=== PATIENT | female | born 1995 | race African-American/Black ===

== ENCOUNTER 2018-07-14 15:42 | Emergency (ER) | payer OTHER, MEDICAID, SELFPAY ==
[2018-07-14 15:44] VITALS: BP 139/101; PULSE 111; RESP 18; TEMP 37.1; O2SAT 98
[2018-07-14 17:18] LABS: RBC Urine 0-1/HPF (0-5/HPF); Squamous Epithelial Cell Urine 1-5 /HPF (0-5/HPF); WBC Urine 5-10/HPF (0-5/HPF)
[2018-07-14 17:19] LABS: Bacteria Urine Moderate (10-30); Culture Indicated Urine Specimen Cultured; Mucus Urine 1+ (Negative)
[2018-07-14 18:10] VITALS: BP 136/94; PULSE 88; RESP 17; O2SAT 100
--- NOTE | 2018-07-14 18:16 | ED_ITS ---
HPI - Abdominal Pain General Chief Complaint: Abdominal Pain Stated Complaint: lower right side abominal pain Time Seen by Provider: 07/14/18 18:02 Source: patient and family Mode of arrival: ambulatory Limitations: no limitations History of Present Illness HPI narrative: The patient is a 22-year-old female with right lower quadrant pain which started today. She says it hurts every time she moves. She thought initially she had have a bowel movement this morning however it is not going away. She has no fever nausea or vomiting. she thought maybe it was just a sore muscle however it also is not going away. No history of ovarian cysts. She denies any painful or frequent urination. 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 She has been eating and drinking normally. Pain has not migrated. MD complaint: abdominal pain Onset (ago): day(s) (1) Pain Consistency: constant Location: RLQ Severity: moderate Quality: sharp Radiation: none Migration to: no migration Relieving factors: nothing Exacerbating factors: nothing Related Data Home Medications Medication Instructions Recorded Confirmed ibuprofen [Motrin IB] 400 mg PO Q4-6H PRN 07/14/18 07/14/18 Previous Rx's Medication Instructions Recorded sulfamethoxazole-trimethoprim 20 ml PO BID 5 Days #200 ml 07/14/18 sulfamethoxazole-trimethoprim 1 tab PO BID 5 Days #10 tab 07/14/18 [Bactrim DS] Allergies Allergy/AdvReac Type Severity Reaction Status Date / Time amoxicillin AdvReac hives Verified 12/12/17 12:01 azithromycin [From Zithromax] AdvReac rash Verified 12/12/17 12:01 Pertussis Vaccines AdvReac swelling Verified 12/12/17 12:01 in her leg, uncontrollable screaming Review of Systems Review of Systems GENERAL: Denies chills, fatigue, malaise, fever, sweats, travel HEENT: Denies sinus pain, ear pain, sore throat, difficulty swallowing, neck pain RESPIRATORY: Denies dyspnea, cough, wheezing, hemoptysis, sputum. CARDIOVASCULAR: Denies chest pain, palpitations, orthopnea, edema GASTROINTESTINAL: See HPI : Denies dysuria, frequency, incontinence, hematuria, urinary retention, flank pain. MUSCULOSKELETAL: Denies weakness, joint pain, or bony pain SKIN: No rash, no erythema, no pruritus NEUROLOGIC: Denies weakness, dizziness, headache, numbness, change in speech, confusion PSYCHIATRIC: No concerning psychosocial issues. 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 RESPIRATORY: Breath sounds equal bilaterally, no wheezes rales or rhonchi. ABDOMEN: Soft, tender right quadrant no guarding or rebound, painful with movement and palpation no other areas of pain : No CVA tenderness EXTREMITIES: Normal range of motion, no clubbing or edema. Neurovascularly intact NEUROLOGICAL: Alert and oriented x4.Normal gait and speech. Cranial nerves II through XII grossly intact. SKIN: Warm, dry, no laceration, no petechiae, no rashes or lesions. Course Orders Ordered: ED Orders 07/14/18 18:15 Complete Blood Count AUTO DIFF Stat Comprehensive Metabolic Panel Stat Lipase Stat Partial Thromboplastin Time Stat Prothrombin Time INR Stat 07/14/18 18:22 CT abdomen pelvis w con Stat Discontinued Medications Acetaminophen (Tylenol Susp) 650 mg PO NOW ONE Stop: 07/14/18 18:24 Last Admin: 07/14/18 18:47 Dose: Not Given Trimethoprim/Sulfamethoxazole (Bactrim Ds Prepack) 1 bottle MISC SEEINSTR ONE Stop: 07/14/18 21:09 Last Admin: 07/14/18 21:17 Dose: Not Given Vital Signs - 8 hr 07/14/18 21:19 Pulse Rate 80 Respiratory Rate 18 Blood Pressure 120/80 Pulse Oximetry 100 MDM - Abdominal Pain Lab Data Attestation: I reviewed the patient's lab results. Result diagrams: 07/14/18 18:15 07/14/18 18:15 Lab Results 07/14/18 07/14/18 07/14/18 Range/Units 16:00 18:15 18:15 WBC 9.7 (4.5-11.0) X10^3/uL RBC 5.23 H (4.0-5.2) X10^6/uL Hgb 13.9 (12.0-16.0) g/dL Hct 43.2 (36-46) % MCV 82.6 (80-100) fL MCH 26.5 (26-34) PG MCHC 32.1 (30-36) % RDW 14.0 (11.6-14.8) % Plt Count 308 (150-400) X10^3/uL Neut % (Auto) 68.0 (50-75) % Lymph % (Auto) 19.6 L (25-40) % Angelina % (Auto) 10.5 (3-14) % Eos % (Auto) 1.4 L (2-4) % Baso % (Auto) 0.5 (0-2) % Neut # (Auto) 6600 (5438-6183) /uL Lymph # (Auto) 1900 (4509-1816) /uL Angelina # (Auto) 1000 H (0-900) /uL Eos # (Auto) 100 (0-450) /uL Baso # (Auto) 0 (0-100) /uL PT 13.1 H (10.1-12.7) SECONDS INR 1.1 (0.9-1.3) APTT 32 (26.4-36.2) SECONDS Sodium (137-145) mmol/L Potassium (3.4-5.1) mmol/L Chloride (98-107) mmol/L Carbon Dioxide (22-32) mmol/L BUN (7-17) mg/dL Creatinine (0.52-1.04) mg/dL Estimated GFR (>60) mL/min BUN/Creatinine Ratio (6-22) Glucose (70-100) mg/dL Calcium (8.4-10.2) mg/dL Total Bilirubin (0.2-1.3) mg/dL AST (14-36) IU/L ALT (9-52) IU/L Alkaline Phosphatase (38-126) U/L Total Protein (6.3-8.2) g/dL Albumin (3.5-5.0) g/dL Globulin (1.7-4.1) g/dL Albumin/Globulin Ratio (1.0-2.8) Lipase (23-300) U/L Urine RBC 0-1/hpf (0-5/HPF) Urine WBC 5-10/hpf H (0-5/HPF) Ur Squamous Epith Cells 1-5 /hpf (0-5/HPF) Urine Bacteria Moderate (10-30) H (None) Urine Mucus 1+ H (Negative) Ur Culture Indicated? Specimen cultured 07/14/18 Range/Units 18:15 WBC (4.5-11.0) X10^3/uL RBC (4.0-5.2) X10^6/uL Hgb (12.0-16.0) g/dL Hct (36-46) % MCV (80-100) fL MCH (26-34) PG MCHC (30-36) % RDW (11.6-14.8) % Plt Count (150-400) X10^3/uL Neut % (Auto) (50-75) % Lymph % (Auto) (25-40) % Angelina % (Auto) (3-14) % Eos % (Auto) (2-4) % Baso % (Auto) (0-2) % Neut # (Auto) (8522-7242) /uL Lymph # (Auto) (9478-0498) /uL Angelina # (Auto) (0-900) /uL Eos # (Auto) (0-450) /uL Baso # (Auto) (0-100) /uL PT (10.1-12.7) SECONDS INR (0.9-1.3) APTT (26.4-36.2) SECONDS Sodium 139 (137-145) mmol/L Potassium 3.7 (3.4-5.1) mmol/L Chloride 102 (98-107) mmol/L Carbon Dioxide 24 (22-32) mmol/L BUN 8 (7-17) mg/dL Creatinine 0.50 L (0.52-1.04) mg/dL Estimated GFR > 60.0 (>60) mL/min BUN/Creatinine Ratio 16.0 (6-22) Glucose 108 H (70-100) mg/dL Calcium 10.0 (8.4-10.2) mg/dL Total Bilirubin 0.8 (0.2-1.3) mg/dL AST 26 (14-36) IU/L ALT 11 (9-52) IU/L Alkaline Phosphatase 73 (38-126) U/L Total Protein 9.8 H* (6.3-8.2) g/dL Albumin 4.9 (3.5-5.0) g/dL Globulin 4.9 H (1.7-4.1) g/dL Albumin/Globulin Ratio 1.0 (1.0-2.8) Lipase 194 (23-300) U/L Urine RBC (0-5/HPF) Urine WBC (0-5/HPF) Ur Squamous Epith Cells (0-5/HPF) Urine Bacteria (None) Urine Mucus (Negative) Ur Culture Indicated? Point of care testing: Point of Care Testing Test Results Negative Urine Dip Bedside Urine Glucose Negative Bedside Urine Bilirubin - Negative Bedside Urine Ketone +/- 5 Urine Specific [place] 1.015 Bedside Urine Occult Blood - Negative Bedside Urine pH 7.5 Bedside Urine Protein - Negative Bedside Urine Urobilinogen +/- 1mg Bedside Urine Nitrite - Negative Bedside Urine Leukocytes +++ [address] scan - abdomen: Radiologist's impression: PROCEDURE: CT ABDOMEN PELVIS W CON INDICATIONS: right lower quad pain TECHNIQUE: After the administration of oral and intravenous contrast, 5 mm thick sections acquired from the diaphragms to the symphysis. 5 mm thick coronal and sagittal reformats were performed. For radiation dose reduction, the following was used: automated exposure control, adjustment of mA and/or kV according to patient size. COMPARISON: None. FINDINGS: Image quality: Excellent. ABDOMEN: Lung bases: Lung bases are clear. Heart size is normal. Solid organs: Liver is normal in size and enhancement. Gallbladder is within n ormal limits. Biliary system is non-dilated. Pancreas enhances normally. Spleen is normal in size and enhancement. No adrenal nodules. Kidneys are normal in size and enhancement, without hydronephrosis. Peritoneum and bowel: Stomach, small bowel, and colon loops are normal in caliber and wall thickness. No free fluid or air. The appendix is not definitively identified. No secondary signs of acute appendicitis is seen in right lower quadrant abdomen. Mild fecal stasis in the colon is seen. Nodes and vessels: No retroperitoneal or mesenteric adenopathy. Aorta and inferior vena cava are normal in caliber. Miscellaneous: No ventral hernias. PELVIS: Genitourinary: Bladder wall thickness is normal. Uterus and left ovary shows no gross echogram of the. 3.3 x 3.2 cm cystic structure is noted in right ovary, which may represent right ovarian cysts. Miscellaneous: No inguinal hernias or adenopathy. Bones: No suspicious bony lesions. No vertebral body compression fractures. IMPRESSION: 1. No evidence of bowel obstruction. No evidence of acute appendicitis. No free fluid or free air. 2. Cystic structure in right adnexa and may represent right ovarian cyst. If indicated, ultrasound of pelvis can be of dictation of this region. 3. No renal stone or hydronephrosis. Dictated by: Pierce Archuleta M.D. on 07/14/2018 at 20:44 MDM Narrative Medical decision making narrative: Patient overall is feeling better. Urine does have bacteria of she has no signs or symptoms of UTI however according to mom she does not feel things normally. Will put her on antibiotics. Re commended ultrasound for follow-up. Discharge Plan Departure Patient Disposition: Home Clinical Impression: Ovarian cyst Qualifiers: Laterality: right Qualified Code(s): N83.201 - Unspecified ovarian cyst, right side UTI (urinary tract infection) Qualifiers: Urinary tract infection type: acute cystitis Hematuria presence: without hematuria Qualified Code(s): N30.00 - Acute cystitis without hematuria Discharge Date/Time: 07/14/18 21:20 Interventions: ED Discharge Assessment Last Done: 07/14/18 21:19 Instructions: Urinary Tract Infection, DI for Ovarian Cyst Activity Restrictions/Additional Instructions: *You have been diagnosed with right ovarian cyst, UTI *What to do: Recommend outpatient ultrasound to be sure resolution of ovarian cyst *Continue to take medications as directed Bactrim 1 tablet twice daily for 5 days--sent to [facility] *Follow up with your primary care provider in 2-3 days *Return to ER if you should have worsening pain, fever or any new, worsening or concerning symptoms Prescriptions: New sulfamethoxazole-trimethoprim [Bactrim DS] 800-160 mg tablet 1 tab PO BID 5 Days Qty: 10 RF: 0 sulfamethoxazole-trimethoprim 200-40 mg/5 mL suspension 20 ml PO BID 5 Days Qty: 200 RF: 0 No Action ibuprofen [Motrin IB] 200 mg Tablet 400 mg PO Q4-6H PRN (Reason: Fever) RF: 0
--- NOTE | 2018-07-14 18:22 | DI.CT.S_ITS ---
PROCEDURE: CT ABDOMEN PELVIS W CON INDICATIONS: right lower quad pain TECHNIQUE: After the administration of oral and intravenous contrast, 5 mm thick sections acquired from the diaphragms to the symphysis. 5 mm thick coronal and sagittal reformats were performed. For radiation dose reduction, the following was used: automated exposure control, adjustment of mA and/or kV according to patient size. COMPARISON: None. FINDINGS: Image quality: Excellent. ABDOMEN: Lung bases: Lung bases are clear. Heart size is normal. Solid organs: Liver is normal in size and enhancement. Gallbladder is within normal limits. Biliary system is non-dilated. Pancreas enhances normally. Spleen is normal in size and enhancement. No adrenal nodules. Kidneys are normal in size and enhancement, without hydronephrosis. Peritoneum and bowel: Stomach, small bowel, and colon loops are normal in caliber and wall thickness. No free fluid or air. The appendix is not definitively identified. No secondary signs of acute appendicitis is seen in right lower quadrant abdomen. Mild fecal stasis in the colon is seen. Nodes and vessels: No retroperitoneal or mesenteric adenopathy. Aorta and inferior vena cava are normal in caliber. Miscellaneous: No ventral hernias. PELVIS: Genitourinary: Bladder wall thickness is normal. Uterus and left ovary shows no gross echogram of the. 3.3 x 3.2 cm cystic structure is noted in right ovary, which may represent right ovarian cysts. Miscellaneous: No inguinal hernias or adenopathy. Bones: No suspicious bony lesions. No vertebral body compression fractures. IMPRESSION: 1. No evidence of bowel obstruction. No evidence of acute appendicitis. No free fluid or free air. 2. Cystic structure in right adnexa and may represent right ovarian cyst. If indicated, ultrasound of pelvis can be of dictation of this region. 3. No renal stone or hydronephrosis. Dictated by: Pierce Archuleta M.D. on 07/14/2018 at 20:44 Approved by: Pierce Archuleta M.D. on 07/14/2018 at 20:51
[2018-07-14 18:24] LABS: Add Manual Diff / Slide Review NO; Basophils Absolute Auto 0 /uL (0-100); Basophils Percent Auto 0.5 % (0-2); Eosinophils Absolute Auto 100 /uL (0-450); Eosinophils Percent Auto 1.4 % (2-4); Hematocrit 43.2 % (36-46); Hemoglobin 13.9 g/dL (12.0-16.0); Lymphocytes Absolute Auto 1900 /uL (1100-4500); Lymphocytes Percent Auto 19.6 % (25-40); Mean Corpuscular HGB Conc 32.1 % (30-36); Mean Corpuscular Hemoglobin 26.5 PG (26-34); Mean Corpuscular Volume 82.6 fL (80-100); Monocytes Absolute Auto 1000 /uL (0-900); Monocytes Percent Auto 10.5 % (3-14); Neutrophils Absolute Auto 6600 /uL (1500-7000); Platelet Count 308 X10^3/uL (150-400); Red Blood Cell Count 5.23 X10^6/uL (4.0-5.2); White Blood Cell Count 9.7 X10^3/uL (4.5-11.0)
[2018-07-14 18:33] LABS: INR 1.1 (0.9-1.3); Prothrombin Time 13.1 SECONDS (10.1-12.7)
[2018-07-14 18:35] LABS: PTT Partial Thromboplastin Tim 32 SECONDS (26.4-36.2)
[2018-07-14 18:37] LABS: Alanine Aminotransferase 11 IU/L (9-52); Albumin 4.9 g/dL (3.5-5.0); Alkaline Phosphatase 73 U/L (38-126); Aspartate Aminotransferase 26 IU/L (14-36); Bilirubin Total 0.8 mg/dL (0.2-1.3); Blood Urea Nitrogen 8 mg/dL (7-17); Carbon Dioxide 24 mmol/L (22-32); Chloride 102 mmol/L (98-107); Estimated Glomerular Filt Rate > 60.0 mL/min (>60); Globulin 4.9 g/dL (1.7-4.1); Glucose 108 mg/dL (70-100); HEMOLYSIS < 15 (0-50); Lipase 194 U/L (23-300); Potassium 3.7 mmol/L (3.4-5.1); Sodium 139 mmol/L (137-145)
[2018-07-14 19:07] LABS: Total Protein 9.8 g/dL (6.3-8.2)
[2018-07-14 21:19] VITALS: BP 120/80; PULSE 80; RESP 18; O2SAT 100
== END 2018-07-14 21:20 | disposition home or self-care (01) ==
PROVIDERS: Nurse Practitioner Family; Emergency Provider Emergency Medicine
DX: N83.201 Unspecified ovarian cyst, right side (principal); N30.00 Acute cystitis without hematuria
CPT/HCPCS: 36591; 74177; 80053; 81003; 81015; 81025; 83690; 85025; 85610; 85730; 87077; 87086; 87186; 99282; 99285; Q9967

== ENCOUNTER → 2021-09-13 09:54 | Outpatient (CLI) | payer MEDICARE, MEDICAID, SELFPAY ==
[2021-09-13 12:04] LABS: Glucose 89 mg/dL (70-100)
[2021-09-13 12:21] LABS: Free T4, Direct Thyroxine 1.13 ng/dL (0.78-2.19)
[2021-09-13 16:34] LABS: Thyroid Stimulating Hormone 1.79 uIU/mL (0.47-4.68)
[2021-09-14 10:28] LABS: Insulin Level Total 5.7 uIU/mL (2.6-24.9)
[2021-09-16 15:16] LABS: Follicle Stimulating Hormone 6.83 mIU/mL; Luteinizing Hormone 11.7 mIU/mL
[2021-09-20 08:36] LABS: Percent Free Testosterone 1.14 % (0.50-2.80); Testosterone Free 1.01 ng/dL (0.10-0.85)
== END ==
PROVIDERS: PCP Physician Assistant Medical; Referring Provider Obstetrics & Gynecology; Visit Provider Obstetrics & Gynecology
DX: N92.6 Irregular menstruation, unspecified (principal); E28.2 Polycystic ovarian syndrome
CPT/HCPCS: 36415; 82947; 83001; 83002; 83525; 84402; 84403; 84439; 84443

== ENCOUNTER 2023-03-23 09:07 | Emergency (ER) | payer MEDICARE, MEDICAID, SELFPAY ==
[2023-03-23 09:15] VITALS: BP 178/108; PULSE 88; RESP 18; TEMP 37; O2SAT 100; BMI 16.9
[2023-03-23 09:17] VITALS: PULSE 89; O2SAT 100
[2023-03-23 09:30] VITALS: BP 137/89; PULSE 77; O2SAT 100
[2023-03-23 10:00] VITALS: BP 139/89; PULSE 82; O2SAT 99
--- NOTE | 2023-03-23 10:15 | ED_ITS ---
HPI - Dizziness General Chief Complaint: Dizziness Stated Complaint: [facility] - shakes, legs feel like jello,abd pain,dizzy, Time Seen by Provider: 03/23/23 09:44 Source: patient, RN notes reviewed and old records reviewed Mode of arrival: Wheelchair Limitations: no limitations History of Present Illness HPI Narrative: 27-year-old female history of chromosomal abnormality on medication for anxiety. Patient presents with complaint of episodes of shaking. Mom states they thought that her blood sugar was low she often does not eat very much but his happen more frequently this week. Tends to be in the morning or just before dinner time. She has not had any fevers that they are aware of. No severe headaches, no altered mental status. Mom states she noticed she did look a little shaky. But has been mostly like she feels like her legs are yellow when she goes to stand or walk. No syncope or lightheadedness. No chest pain, no shortness of breath. No vomiting has had some nausea. Denies any diarrhea or c onstipation. No dysuria urgency or frequency. Patient has not had any solids sees slight when she had some bread and butter. She has had 2 sips of electrolyte drink this morning but nothing else. She has minimal intake typically. Patient mom states she is on oral medication for anxiety and melatonin. She has had prior surgeries on her ears and foot. Gets hives with amoxicillin and a rash with the azithromycin. No tobacco, alcohol. ETHAN matos is her primary care. Related Data Home Medications Medication Instructions Recorded Confirmed escitalopram oxalate 5 mg/5 mL 10 mg PO DAILY 09/12/21 09/12/21 oral solution melatonin 5 mg tablet 5 mg PO BEDTIME PRN 09/12/21 09/12/21 nystatin topical 09/12/21 09/12/21 tretinoin 0.05 % topical cream 1 applic topical BEDTIME 09/12/21 09/12/21 Previous Rx's Medication Instructions Recorded eflornithine 13.9 % topical cream 1 applic topical BID #45 grams 09/24/21 (Vaniqa) spironolactone 25 mg/5 mL oral 50 mg (10 mL) PO BID #473 mL 09/24/21 suspension sulfamethoxazole 200 20 ml PO BID 5 days #200 mL 03/23/23 mg-trimethoprim 40 mg/5 mL oral suspension Allergies Allergy/AdvReac Type Severity Reaction Status Date / Time amoxicillin AdvReac hives Verified 03/23/23 09:20 azithromycin [From Zithromax] AdvReac rash Verified 03/23/23 09:20 Pertussis Vaccines AdvReac swelling Verified 03/23/23 09:20 in her leg, uncontrollable screaming Review of Systems Review of Systems ROS Unobtainable: All systems reviewed & are unremarkable except as noted in HPI and below Patient History Medical History Cyst (~2017) Anxiety (~2017) History of developmental delay (~1997) Scoliosis (~2008) Foot pain (~2008) Chicken pox (~2004) 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 HEENT: Atraumatic, pupils are equal round reactive to light, extraocular movements are intact, nares are clear, there is no conjunctival pallor. Throat is clear without any exudates, erythema, tonsillar enlargement or uvular deviation, no facial droop HEART: Regular rate and rhythm without murmur, clicks, rubs. No carotid bruits, pulses are equal in upper and lower extremities LUNGS:Lungs clear to auscultation, no wheezes, rales, crackles, chest moves symmetrically ABD:bowel sounds normal, soft, non-tender, no guarding, rebound, rigidity, no masses noted, no hepatosplenomegaly :No CVA tenderness MSCL: Non-tender, no muscle atrophy, muscles strength 5/5 upper and lower extremities, full range of motion, normal gait NEURO:CN 2-12 intact, sensation normal, no active tremor on exam. SKIN: No rash, erythema or other skin changes. Initial Vital Signs Initial Vital Signs: Vital Signs Temperature 98.6 F 03/23/23 09:15 Pulse Rate 88 03/23/23 09:15 Respiratory Rate 18 03/23/23 09:15 Blood Pressure 178/108 H 03/23/23 09:15 Pulse Oximetry 100 03/23/23 09:15 Oxygen Delivery Method Room Air 03/23/23 09:15 Course Orders Ordered: ED Orders 03/23/23 09:55 Urine Culture Stat Urine Microscopic Stat Vital Signs Vital signs: Vital Signs - 8 hr 03/23/23 10:30 03/23/23 10:30 03/23/23 11:00 Pulse Rate 85 73 Blood Pressure 144/93 H Pulse Oximetry 100 100 MDM - Dizziness Lab Data Labs: Lab Results 03/23/23 Range/Units 09:55 Urine RBC None seen (0-5/HPF) Urine WBC 5-10/hpf H (0-5/HPF) Ur Squamous Epith Cells 0-1 /hpf (0-5/HPF) Urine Bacteria None seen (None) Ur Culture Indicated? Specimen cultured Point of Care Testing Test Results Negative Glucose POC 92 Urine Dip Bedside Urine Glucose Negative Bedside Urine Bilirubin - Negative Bedside Urine Ketone - Negative Urine Specific [place] 1.010 Bedside Urine Occult Blood - Negative Bedside Urine pH 7.0 Bedside Urine Protein - Negative Bedside Urine Urobilinogen - Negative Bedside Urine Nitrite - Negative Bedside Urine Leukocytes +++ 500 Esterase MDM Narrative Medical decision making narrative: 27-year-old female history of chromosomal disorder who has had some shaking typically they thought that it was secondary to not having much food intake but she has normal sugar here today in the 90s. Had gone to the walk-in and referred here. No acute neurologic changes appreciated on exam. Does have potential UTI she is asymptomatic otherwise. After discussion patient mom preferred to treat UTI and follow up with primary care rather than pursue additi onal workup. Patient looks alert, appropriate to make decisions to hold off on additional workup at this time mom's at bedside and supportive. Discussed return precautions. Discharge Plan Departure Patient Disposition: Home Clinical Impression: UTI (urinary tract infection), Shaking Activity Restrictions/Additional Instructions: Follow up with your physician. Your shaking may or may not be related to the changes in your urine today. You are being treated for a bladder infection or UTI. Take antibiotics until completed. Prescription sent to [facility] in [place]. Please return for fevers, new or worsening symptoms, persistent shaking, altered mental status, new chest pain, shortness of breath, passing out, loss of bowel or bladder control, difficulty with speech, severe headaches or other new or concerning changes. Prescriptions: New sulfamethoxazole-trimethoprim 200-40 mg/5 mL suspension 20 ml PO BID 5 Days Qty: 200 0RF No Action spironolactone 25 mg/5 mL suspension 50 mg PO BID Qty: 473 6RF Vaniqa 13.9 % cream 1 applic topical BID Qty: 45 6RF Rx Instructions: space doses >= 8 hrs apart and avoid water for 4hr after any dose melatonin 5 mg tablet 5 mg PO BEDTIME PRN escitalopram oxalate 5 mg/5 mL solution 10 mg PO DAILY nystatin topical tretinoin 0.05 % cream 1 applic topical BEDTIME Referrals: Vera Matos PA-C [Primary Care Provider] - Stand Alone Forms: Patient Portal/API
[2023-03-23 10:27] LABS: Bacteria Urine None Seen; Culture Indicated Urine Specimen Cultured; RBC Urine None Seen (0-5/HPF); Squamous Epithelial Cell Urine 0-1 /HPF (0-5/HPF); WBC Urine 5-10/HPF (0-5/HPF)
[2023-03-23 10:30] VITALS: BP 144/93; PULSE 85; O2SAT 100
[2023-03-23 11:00] VITALS: PULSE 73; O2SAT 100
== END 2023-03-23 11:11 | disposition home or self-care (01) ==
PROVIDERS: Emergency Provider Emergency Medicine; PCP Physician Assistant Medical
DX: N39.0 Urinary tract infection, site not specified (principal); R25.1 Tremor, unspecified
CPT/HCPCS: 81003; 81015; 81025; 82962; 87086; 99282

== ENCOUNTER → 2023-08-18 18:58 | Outpatient (CLI) | payer MEDICARE, MEDICAID, SELFPAY ==
[2023-08-18 20:17] LABS: Influenza A - CEPHEID Flu A NEGATIVE (NEGATIVE); Influenza B - CEPHEID Flu B NEGATIVE (NEGATIVE); Respiratory Syncytial Virus Negative (Negative)
[2023-08-18 20:23] LABS: COVID-19 CEPHEID 4-PLEX PCR POSITIVE (Negative)
== END ==
PROVIDERS: PCP Physician Assistant Medical; Visit Provider Nurse Practitioner Family
DX: R05.1 Acute cough (principal)
CPT/HCPCS: 0241U

== ENCOUNTER → 2023-08-18 19:06 | Outpatient (CLI) | payer MEDICARE, MEDICAID, SELFPAY ==
--- NOTE | 2023-08-18 19:08 | DI.RAD.S_ITS ---
PROCEDURE: XR CHEST 2V INDICATIONS: Cough TECHNIQUE: 2 views of the chest were acquired. COMPARISON: None. FINDINGS: Surgical changes and devices: None. Lungs and pleura: Lungs are clear. No pleural effusions or pneumothorax. Mediastinum: Mediastinal contours are normal. Heart size is normal. Bones and chest wall: No suspicious bony abnormalities. Mild dextrocurvature of the thoracic spine. Soft tissues appear unremarkable. IMPRESSION: No acute cardiopulmonary abnormality is seen. Dictated by: Kojo Manning M.D. on 08/19/2023 at 9:05 Approved by: Kojo Manning M.D. on 08/19/2023 at 9:05
== END ==
PROVIDERS: PCP Physician Assistant Medical; Referring Provider Nurse Practitioner Family; Visit Provider Nurse Practitioner Family
DX: R05.1 Acute cough (principal)
CPT/HCPCS: 0241U; 71046

== ENCOUNTER → 2024-05-24 14:30 | Outpatient (CLI) | payer MEDICARE, MEDICAID, SELFPAY | PROVIDERS: PCP Physician Assistant Medical; Visit Provider Nurse Practitioner Family | DX: S51.801A Unspecified open wound of right forearm, initial encounter (principal) | CPT/HCPCS: 87070; 87205 ==